=== PATIENT | female | born 1955 | race Caucasian/White ===

== ENCOUNTER 2016-10-26 17:26 | Emergency (ER) | payer OTHER ==
--- NOTE | 2016-10-26 18:17 | ED NURSING NOTES ---
Clinical Report - Nurses [facility] [address] [place] [address] 10/26/2016 17:28 Patient: PORSCHE YU TRIAGE Triage time 17:22. Acuity: LEVEL 4. Chief Complaint: NOSEBLEED. 17:32 10/26/16. Alert. No acute distress. PRIYA COMA SCORE: Priya Coma Scale: 15- eyes open spontaneously (4); best verbal response- oriented x 4 (5); best motor response- obeys commands (6). --17:32 Jyotsna Norwood R.N. 17:24 10/26/16. BP: 173/91. HR: 100. RR: 16. O2 saturation: 98% on room air. Temp: unable to obtain due to patient condition. Pain level now: 0/10. --17:32 Jyotsna Norwood R.N. Weight: 81.6 kg estimated. Height/Length: 64 inches Estimated. BMI: 30.9. Growth Chart Percentile: Weight: 100%. Height/Length: 100%. --17:28 Jyotsna Norwood R.N. Medications Atenolol Oral. --17:29 Jyotsna Norwood R.N. Omeprazole Oral. --17:29 Jyotsna Norwood R.N. Atorvastatin Calcium Oral. --17:30 Jyotsna Norwood R.N. Enzyme c210. --17:30 Jyotsna Norwood R.N. Allergies None. --17:30 Jyotsna Norwood R.N. History Arrived by private vehicle. Historian: patient and family. Accompanied by family. Primary physician ([facility]). Onset. (1 hours ago). PAST MEDICAL HX: Immunizations: up-to-date. Denies current . SOCIAL HX: Never smoker. Occasional alcohol use. FALL RISK ASSESSMENT: Fall risk assessment completed. No fall risk identified. NUTRITIONAL RISK ASSESSMENT: The nutritional risk assessment revealed no deficiencies. FUNCTIONAL ASSESSMENT: Functional assessment: no impairments noted. LEARNING NEEDS ASSESSMENT: The learning needs assessment revealed no barriers. SKIN INTEGRITY ASSESSMENT: Skin integrity risk assessment completed. No skin integrity risk identified. --17:32 Jyotsna Norwood R.N. Interventions ID band on patient. To treatment room. --17:32 Jyotsna Norwood R.N. PHYSICAL ASSESSMENT 17:32 10/26/16. GENERAL / NEURO / PSYCH: Alert. Appears in no acute distress. HEENT: No facial asymmetry noted. RESPIRATORY: Respirations not labored. CVS: Capillary refill less than 2 seconds. SKIN: Skin is warm and dry. --17:32 Jyotsna Norwood R.N. NURSING PROGRESS NOTES 17:33 10/26/16. Two patient identifiers checked. Call light placed in reach. Bed placed in lowest position. Brakes of bed on. Patient ready for evaluation- chart flagged and notification provided. --17:33 Jyotsna Norwood R.N. 17:40 10/26/2016 Afrin (Oxymetazoline HCl) Nasal [place] 2 spray given. Given in both nares. Allergies verified and confirmed 5 rights. --17:40 Jyotsna Norwood R.N. 18:03 10/26/16. ( Nosebleed has stopped. Pt's son at bedside applying pressure to pt's nose.). --18:03 Jyotsna Norwood R.N. late entry -18:23. ( Homeostasis achieved no s/s of nose bleeding on DC). --18:29 Stone Barker R.N. DISPOSITION / DISCHARGE 18:29 10/26/16. Condition at departure: improved. The goals identified in the patient's plan of care were met. No learning barriers present. Discharge instructions provided and reviewed with the patient and family. Reviewed warnings. Reviewed medication(s). Treatments reviewed. Patient and family verbalized understanding. Written instructions provided in [place]. The patient was discharged by the physician. She was discharged home and accompanied by family. She left the Emergency Department ambulatory and via private vehicle. Family member driving. FALL RISK ASSESSMENT: Fall risk assessment completed. No fall risk identified. --18:29 Stone Barker R.N. 18:28 10/26/16. BP: 117/63. HR: 72. RR: 14. O2 saturation: 99% on room air. Temp: 98.2 F (oral). --18:29 Stone Barker R.N. 18:30 10/26/16. Departure time: 18:29. --18:30 Stone Barker R.N. Locked/Released at 10/26/2016 18:36 by Stone Barker R.N.
--- NOTE | 2016-10-26 18:17 | ED ORDER SUMMARY ---
..... Patient: PORSCHE YU OrderSheet [facility] VisitID: [id number] [address] [place] [address] 61y, F Registration Date/Time: 10/26/2016 ORDER SHEET Weight: 81.6 kg (estimated) Allergies: None GENERAL ORDERS: MEDICATION ORDERS: Afrin Nasal [place] 2 sprays (NOW) (17:31 10/26/2016 Jared Ferris verbal order read back to Deion Lanier) (17:40 Ady Ferris) IV FLUIDS: ORDER SHEET NOTES: [Electronically signed by Stnoe Barker R.N. (18:36 10/26/2016)] [Electronically signed by Kj Karimi Dr. (15:57 10/31/2016)] [Electronically locked/signed by Stone Barker R.N. (18:36 10/26/2016)]
--- NOTE | 2016-10-26 18:17 | ED ORDER SUMMARY ---
..... Patient: PORSCHE YU OrderSheet [facility] VisitID: [id number] [address] [place] [address] 61y, F Registration Date/Time: 10/26/2016 ORDER SHEET Weight: 81.6 kg (estimated) Allergies: None GENERAL ORDERS: MEDICATION ORDERS: Afrin Nasal [place] 2 sprays (NOW) (17:31 10/26/2016 Jared Ferris verbal order read back to Deion Lanier) (17:40 Ady Ferris) IV FLUIDS: ORDER SHEET NOTES: [Electronically signed by Stone Barker R.N. (18:36 10/26/2016)] [Electronically signed by Kj Karimi Dr. (15:57 10/31/2016)] [Electronically locked/signed by Stone Barker R.N. (18:36 10/26/2016)]
--- NOTE | 2016-10-26 18:17 | ED CLINICAL REPORT ---
Clinical Report - Physicians/Mid Levels [facility] [address] [place] [address] 10/26/2016 17:28 Patient: PORSCHE YU Time Seen: 1720. Arrived- By private vehicle. Historian- patient. HISTORY OF PRESENT ILLNESS Chief Complaint: NOSEBLEED. Since today and is still present and worsening. It was abrupt in onset and has been constant but is not gone now. Location- left nare. The patient has had epistaxis. (was out in the garden when in happened. reports no trauma, blood thinners, or hx of bleeding problems). Similar symptoms previously: None. Recent medical care: Not recently seen/assessed. REVIEW OF SYSTEMS No fever, excessive bruising, bleeding from gums or skin rash. All systems otherwise negative, except as recorded above. PAST HISTORY See nurses notes. Medications: Enzyme c210. Atorvastatin Calcium Oral. Omeprazole Oral. Atenolol Oral. Allergies: None. SOCIAL HISTORY Never smoker. No alcohol use or drug use. No recent travel. Is a local resident. FAMILY HISTORY (no family hx of bleeding problems). ADDITIONAL NOTES The nursing notes have been reviewed. PHYSICAL EXAM Vital Signs: 10/26/2016 17:24 BP: 173/91. HR: 100. RR: 16. O2 saturation: 98%. Pain level now: 0/10. Oxygen saturation normal. Appearance: Alert. Patient in mild distress. Eyes: Eyes normal inspection. No conjunctival findings or pale conjunctivae. ENT: Ears normal. Nose: Moderate right-nare active bleeding from uncertain location and severe left-nare active bleeding from uncertain location. Throat: Bleeding from nasopharynx. No pharyngeal erythema or tonsillar exudate. The mucous membranes are not dry or pale. Neck: Normal inspection. Neck supple. CVS: Normal heart rate and rhythm. Heart sounds normal. Respiratory: No respiratory distress. No respiratory distress. Breath sounds normal. No rales, rhonchi or wheezes. Abdomen: Soft and nontender. No organomegaly. Skin: Skin warm and dry. Normal skin color. No rash. Normal skin turgor. Extremities: Extremities exhibit normal ROM. No lower extremity edema. PROGRESS AND PROCEDURES Course of Care: the patient is a pleasant 61-year-old female with no pertinent past medical history presenting for evaluation of nosebleed. The patient looks like to be in a moderate amount of distress given the amount of blood that is being produced from her nose. Patient does not have any signs of airway compromise at this time. Patient is not on any blood thinners or medications that would put her at increased risk for having any bleeding problems. Patient reports no history of bleeding problems in the past including dental work in the past. Patient is unclear exactly where the bleeding is coming from however reports that it is most likely coming from the left side given the amount of blood coming from that area. Patient will be evaluated with holding pressure andAfrin nose spray. Patient is agreeable to the treatment and plan. We'll we'll evaluate patient after the medications been given. I was personally available at bedside while the medication was being administered. The patient was instructed to blow out all of the blood clots and blood in her nose as much as she can. Patient was able to produce a moderate amount of blood and blood clots from the nose. After which time a generous dose of Afrin nose spray was applied to each naris. Patient tolerated procedure well. Pressure was then again reapplied. The patient's son was available to help with this. Approximately 50 minutes after medication was given, patient was reevaluated. Patient reported no bleeding from her nose at this time. Symptoms have significantly improved. On examination, no specific site for the bleeding was noted on nasal examination with the otoscope. Because of this, likely posterior bleed. Do not feel further intervention is required at this time. Offered patient to be monitored in the hospital for as long as she would like given the factthat she had a significant amount of bleeding through her nose. Patient was monitored and did not have any further bleeding while here in the emergency department. Prescription for Afrin nose spray provided in case patient has arecurrence of her nosebleed. No other abnormalities on patient's workup. Patient does not have any signs of anemia. Discussed with patient, diagnosis, home care, follow-up, and return precautions. All questions have been answered. The patient expressed understanding of these instructions and was agreeable to them. Of note, no signs of anemia on examination. Conjunctiva do not appear pale. Blood pressure is noted to be normal. Do not feel patient would benefit from complete blood cell count or further laboratory workup. CLINICAL IMPRESSION Acute posterior, transient, major epistaxis (left). 10/26/2016 17:24 BP: 173/91. HR: 100. RR: 16. O2 saturation: 98%. Pain level now: 0/10. Oxygen saturation normal. INSTRUCTIONS Warnings: GENERAL WARNINGS: Return or contact your physician immediately if your condition worsens or changes unexpectedly, if not improving as expected, or if other problems arise. Specifically return if pain, vomiting, bleeding, breathing difficulty or fever. Your Current Medications: CONTINUE TAKING THE FOLLOWING MEDICATIONS: Atenolol Oral. Atorvastatin Calcium Oral. Enzyme c210*. Omeprazole Oral. OTC Medications: Afrin nasal spray (Available over the counter): Take according to label instructions. Follow-up: Return to the emergency department as needed. Follow up with your doctor in three if not well. Reason for referral: recheck today's concerns. Summary of care provided to patient via paper. Screening today revealed the patient's blood pressure to be in the normal range. The patient should follow up with a primary care provider for blood pressure management. Understanding of the discharge instructions verbalized by patient. (Electronically signed by Kj Karimi Dr. 10/31/2016 15:57)
--- NOTE | 2016-10-26 18:17 | ED NURSING NOTES ---
Clinical Report - Nurses [facility] [address] [place] [address] 10/26/2016 17:28 Patient: PORSCHE YU TRIAGE Triage time 17:22. Acuity: LEVEL 4. Chief Complaint: NOSEBLEED. 17:32 10/26/16. Alert. No acute distress. PRIYA COMA SCORE: Priya Coma Scale: 15- eyes open spontaneously (4); best verbal response- oriented x 4 (5); best motor response- obeys commands (6). --17:32 Jyotsna Norwood R.N. 17:24 10/26/16. BP: 173/91. HR: 100. RR: 16. O2 saturation: 98% on room air. Temp: unable to obtain due to patient condition. Pain level now: 0/10. --17:32 Jyotsna Norwood R.N. Weight: 81.6 kg estimated. Height/Length: 64 inches Estimated. BMI: 30.9. Growth Chart Percentile: Weight: 100%. Height/Length: 100%. --17:28 Jyotsna Norwood R.N. Medications Atenolol Oral. --17:29 Jyotsna Norwood R.N. Omeprazole Oral. --17:29 Jyotsna Norwood R.N. Atorvastatin Calcium Oral. --17:30 Jyotsna Norwood R.N. Enzyme c210. --17:30 Jyotsna Norwood R.N. Allergies None. --17:30 Jyotsna Norwood R.N. History Arrived by private vehicle. Historian: patient and family. Accompanied by family. Primary physician ([facility]). Onset. (1 hours ago). PAST MEDICAL HX: Immunizations: up-to-date. Denies current . SOCIAL HX: Never smoker. Occasional alcohol use. FALL RISK ASSESSMENT: Fall risk assessment completed. No fall risk identified. NUTRITIONAL RISK ASSESSMENT: The nutritional risk assessment revealed no deficiencies. FUNCTIONAL ASSESSMENT: Functional assessment: no impairments noted. LEARNING NEEDS ASSESSMENT: The learning needs assessment revealed no barriers. SKIN INTEGRITY ASSESSMENT: Skin integrity risk assessment completed. No skin integrity risk identified. --17:32 Jyotsna Norwood R.N. Interventions ID band on patient. To treatment room. --17:32 Jyotsna Norwood R.N. PHYSICAL ASSESSMENT 17:32 10/26/16. GENERAL / NEURO / PSYCH: Alert. Appears in no acute distress. HEENT: No facial asymmetry noted. RESPIRATORY: Respirations not labored. CVS: Capillary refill less than 2 seconds. SKIN: Skin is warm and dry. --17:32 Jyotsna Norwood R.N. NURSING PROGRESS NOTES 17:33 10/26/16. Two patient identifiers checked. Call light placed in reach. Bed placed in lowest position. Brakes of bed on. Patient ready for evaluation- chart flagged and notification provided. --17:33 Jyotsna Norwood R.N. 17:40 10/26/2016 Afrin (Oxymetazoline HCl) Nasal [place] 2 spray given. Given in both nares. Allergies verified and confirmed 5 rights. --17:40 Jyotsna Norwood R.N. 18:03 10/26/16. ( Nosebleed has stopped. Pt's son at bedside applying pressure to pt's nose.). --18:03 Jyotsna Norwood R.N. late entry -18:23. ( Homeostasis achieved no s/s of nose bleeding on DC). --18:29 Stone Barker R.N. DISPOSITION / DISCHARGE 18:29 10/26/16. Condition at departure: improved. The goals identified in the patient's plan of care were met. No learning barriers present. Discharge instructions provided and reviewed with the patient and family. Reviewed warnings. Reviewed medication(s). Treatments reviewed. Patient and family verbalized understanding. Written instructions provided in [place]. The patient was discharged by the physician. She was discharged home and accompanied by family. She left the Emergency Department ambulatory and via private vehicle. Family member driving. FALL RISK ASSESSMENT: Fall risk assessment completed. No fall risk identified. --18:29 Stone Barker R.N. 18:28 10/26/16. BP: 117/63. HR: 72. RR: 14. O2 saturation: 99% on room air. Temp: 98.2 F (oral). --18:29 Stone Barker R.N. 18:30 10/26/16. Departure time: 18:29. --18:30 Stone Barker R.N. Locked/Released at 10/26/2016 18:36 by Stone Barker R.N.
--- NOTE | 2016-10-31 15:57 | ED MAR SUMMARY ---
..... Medication Administration Record [facility] [address] [place] [address] Patient: OPRSCHE YU Visit ID: [id number] 61y, F Weight: 81.6 kg Height/Length: 64 in BMI: 30.9 ALLERGIES: None Given 17:40 10/26/2016 Jyotsna Norwood R.N. Medication Administered: AFRIN [NASAL SPRAY] (OXYMETAZOLINE HCL), Dose: 2 spray [place] Nasal [place]. Medication Ordered: Afrin Nasal [place] 2 sprays (NOW).
--- NOTE | 2016-10-31 15:57 | ED DISCHARGE INSTRUCTIONS ---
Patient: PORSCHE YU General Instructions [facility] VisitID: [id number] [address] [place] [address] 61y, F Registration Date/Time: 10/26/2016 Acute posterior, transient, major epistaxis (left). 10/26/2016 17:24 BP: 173/91. HR: 100. RR: 16. O2 saturation: 98%. Pain level now: 0/10. Oxygen saturation normal. INSTRUCTIONS Warnings: GENERAL WARNINGS: Return or contact your physician immediately if your condition worsens or changes unexpectedly, if not improving as expected, or if other problems arise. Specifically return if pain, vomiting, bleeding, breathing difficulty or fever. Your Current Medications: CONTINUE TAKING THE FOLLOWING MEDICATIONS: Atenolol Oral. Atorvastatin Calcium Oral. Enzyme c210*. Omeprazole Oral. OTC Medications: Afrin nasal spray (Available over the counter): Take according to label instructions. Follow-up: Return to the emergency department as needed. Follow up with your doctor in three if not well. Reason for referral: recheck today's concerns. Summary of care provided to patient via paper. Screening today revealed the patient's blood pressure to be in the normal range. The patient should follow up with a primary care provider for blood pressure management. Understanding of the discharge instructions verbalized by patient. ADDITIONAL INFORMATION Nosebleed [Adult] Bleeding from the nose most commonly occurs due to injury or drying and cracking of the inner lining of the nose. This can occur during a "common cold," "hay fever" attack, a very hot day, or from dry air in the winter. High blood pressure and hardening of the arteries (atherosclerosis) may also cause nosebleeds. If the bleeding site is found, it may be treated with a chemical or heat or electricity to cause a blood clot to form (cauterized). If the bleeding continues after cautery or if the bleeding site cannot be found, a packing may be placed in your nose to apply pressure and stop the bleeding. The packing may be made of gauze or sponge. A small balloon catheter is sometimes used. These need to be removed by your doctor. Some types of packing dissolve on their own. Home Care: If a packing was put in your nose, unless told otherwise, do not pull on it or try to remove it yourself. You will be given an appointment to have it removed. You may also have been given antibiotics to prevent a sinus infection. If so, complete all the medicine. Do not blow your nose for 12 hours after the bleeding stops. This will allow a strong blood clot to form. Do not pick your nose. This may restart bleeding. Avoid alcohol and hot liquids for the next two days. Alcohol or hot liquids in your mouth can dilate blood vessels in your nose and cause bleeding to start again. Do not take ibuprofen (Advil, Motrin), naprosyn (Aleve) or aspirin-containing medicines since these thin the blood and may promote nose bleeding. You may take Tylenol (acetaminophen) for pain, unless another pain medicine was prescribed. If the bleeding starts again, sit up and lean forward to prevent swallowing blood. Pinch your nose tightly for exactly 5 minutes (watch the clock). If bleeding is not controlled, continue to pinch and call your doctor or return to this facility. If high blood pressure was a cause for your nosebleed, have your blood pressure checked again tomorrow. If you have a "cold" or "hay fever" or dry nasal membranes, lubricate the nasal passages by applying a small amount of Vaseline inside the nose with a Q-tip twice a day (morning and night). Avoid overheating your home, which can dry the air and worsen your condition. Follow Up with your doctor as advised for packing removal. Nasal packing should be rechecked or removed within 2-3 days. Get Prompt Medical Attention if any of the following occur: Another nosebleed that you cannot control Dizziness, weakness or fainting Fever of 100.4F (38C) or higher, or as directed by your healthcare provider Headache Sinus or facial pain Shortness of breath or trouble breathing You have been given the following additional information: Epistaxis (Adult) (Electronically signed by Kj Karimi Dr. 10/31/2016 15:57)
--- NOTE | 2016-10-31 15:57 | ED MAR SUMMARY ---
..... Medication Administration Record [facility] [address] [place] [address] Patient: PORSCHE YU Visit ID: [id number] 61y, F Weight: 81.6 kg Height/Length: 64 in BMI: 30.9 ALLERGIES: None Given 17:40 10/26/2016 Jyotsna Norwood R.N. Medication Administered: AFRIN [NASAL SPRAY] (OXYMETAZOLINE HCL), Dose: 2 spray [place] Nasal [place]. Medication Ordered: Afrin Nasal [place] 2 sprays (NOW).
--- NOTE | 2016-10-31 15:57 | ED MED RECONCILIATION SUMMARY ---
Patient: PORSCHE YU Medication Reconciliation Report [facility] VisitID: [id number] [address] [place] [address] 61y, F Registration Date/Time: 10/26/2016 Weight: 81.6 kg Height/Length: 64 in. BMI: 30.9 ALLERGIES: None The patient's Home Medications are listed below: CONTINUE TAKING THE FOLLOWING MEDICATIONS: Atenolol Oral Atorvastatin Calcium Oral Enzyme c210 Omeprazole Oral The source(s) of the original Home Medication information: Not obtained. The following Medications were given to the patient in the Emergency Department: Afrin [Nasal [place]] Nasal [place] 2 spray, administered: 10/26/2016 5:40:00 PM The following Medications were prescribed to the patient: Afrin nasal spray (Available over the counter): Take according to label instructions. -- Kj Karimi Dr.
--- NOTE | 2016-10-31 15:57 | ED MED RECONCILIATION SUMMARY ---
Patient: PORSCHE YU Medication Reconciliation Report VisitID: [id number] [address] [place] [address] 61y, F Registration Date/Time: 10/26/2016 Weight: 81.6 kg Height/Length: 64 in. BMI: 30.9 ALLERGIES: None The patient's Home Medications are listed below: CONTINUE TAKING THE FOLLOWING MEDICATIONS: Atenolol Oral Atorvastatin Calcium Oral Enzyme c210 Omeprazole Oral The source(s) of the original Home Medication information: Not obtained. The following Medications were given to the patient in the Emergency Department: Afrin [Nasal [place]] Nasal [place] 2 spray, administered: 10/26/2016 5:40:00 PM The following Medications were prescribed to the patient: Afrin nasal spray (Available over the counter): Take according to label instructions. -- Kj Karimi Dr.
== END 2016-10-26 18:29 | disposition home or self-care (01) ==
LOC: ED SRH 17:26
DX: R04.0 Epistaxis (principal); Z79.899 Other long term (current) drug therapy